=== PATIENT | male | born 1995 | race Caucasian/White ===

== ENCOUNTER 2016-09-29 12:23 | Emergency (ER) | payer OTHER ==
[2016-09-29 15:45] VITALS: BP 133/77
== END 2016-09-29 15:45 | disposition home or self-care (01) ==
LOC: ED 12:23
DX: S31.134A Puncture wound of abdominal wall without foreign body, left lower quadrant without penetration into peritoneal cavity, initial encounter (principal); F12.90 Cannabis use, unspecified, uncomplicated; Z88.0 Allergy status to penicillin; Z88.1 Allergy status to other antibiotic agents; W22.8XXA Striking against or struck by other objects, initial encounter; Y93.89 Activity, other specified; Y92.89 Other specified places as the place of occurrence of the external cause; Y99.0 Civilian activity done for income or pay
CPT/HCPCS: Q0092

== ENCOUNTER 2016-11-04 09:12 | Emergency (ER) | payer MEDICAID ==
[2016-11-04 10:53] VITALS: BP 128/71
== END 2016-11-04 10:53 | disposition home or self-care (01) ==
LOC: ED 09:12
DX: S61.211A Laceration without foreign body of left index finger without damage to nail, initial encounter (principal); Z88.0 Allergy status to penicillin; W26.8XXA Contact with other sharp object(s), not elsewhere classified, initial encounter; Y93.89 Activity, other specified; Y99.8 Other external cause status; Y92.89 Other specified places as the place of occurrence of the external cause
CPT/HCPCS: 90715

== ENCOUNTER 2017-06-19 05:43 | Emergency (ER) | payer MEDICAID ==
[~2017-06-19] VITALS: Ht 172.7 cm; Wt 104.3 kg
[2017-06-19 05:55] VITALS: Ht 172.7 cm; Wt 104.3 kg
[2017-06-19 06:58] VITALS: BP 130/89
== END 2017-06-19 06:58 | disposition home or self-care (01) ==
LOC: ED 05:43
DX: L50.9 Urticaria, unspecified (principal); F12.90 Cannabis use, unspecified, uncomplicated; Z88.0 Allergy status to penicillin; Z88.1 Allergy status to other antibiotic agents
CPT/HCPCS: J1200

== ENCOUNTER → 2017-06-19 | Outpatient (CLI) | payer MEDICAID ==
[2017-06-19 08:16] LABS: BASOPHIL % 0.1 % (0-2); PLATELET COUNT 197 x10^3mcL (130-400); RED CELL DISTRIBUTION WIDTH 13.6 % (11.5-14.5)
[2017-06-19 08:51] LABS: BILIRUBIN DIRECT 0.14 mg/dL (0.0-0.2); BILIRUBIN TOTAL 0.3 mg/dL (0.20-1.00); TOTAL PROTEIN, SERUM 7.1 g/dL (6.4-8.2)
[2017-06-19 08:54] LABS: CHOLESTEROL/HDL RATIO 3.3
== END | disposition home or self-care (01) ==
LOC: LB 07:20
PROVIDERS: Internal Medicine Gastroenterology
DX: K74.60 Unspecified cirrhosis of liver (principal); K76.9 Liver disease, unspecified; E66.9 Obesity, unspecified

== ENCOUNTER 2017-10-09 13:39 | Emergency (ER) | payer MEDICAID ==
[~2017-10-09] VITALS: Ht 175.3 cm; Wt 106.6 kg
[2017-10-09 14:36] VITALS: Ht 175.3 cm; Wt 106.6 kg
[2017-10-09 16:39] VITALS: BP 129/65
== END 2017-10-09 16:39 | disposition home or self-care (01) ==
LOC: ED 13:39
DX: S46.912A Strain of unspecified muscle, fascia and tendon at shoulder and upper arm level, left arm, initial encounter (principal); Z88.0 Allergy status to penicillin; Z88.8 Allergy status to other drugs, medicaments and biological substances; X58.XXXA Exposure to other specified factors, initial encounter; Y93.89 Activity, other specified; Y92.89 Other specified places as the place of occurrence of the external cause; Y99.8 Other external cause status

== ENCOUNTER → 2017-10-13 | Outpatient (CLI) | payer MEDICAID | END | disposition home or self-care (01) | LOC: US 12:24 | PROC: BW40ZZZ Ultrasonography of Abdomen (ICD-10-PCS; principal; 2017-10-13) | DX: K74.60 Unspecified cirrhosis of liver (principal); K76.9 Liver disease, unspecified; E66.9 Obesity, unspecified ==

== ENCOUNTER 2018-08-20 05:05 | Inpatient (IN) | payer MEDICAID ==
[~2018-08-20] VITALS: Ht 175.3 cm; Wt 91.6 kg
[2018-08-20 05:09] VITALS: Ht 175.3 cm; Wt 91.6 kg
--- NOTE | 2018-08-20 05:17 | NUR ---
PT CAME TO ED CO GENERALIZED ABD PAIN. PT POINTED TO ENTIRE STOMACH AND STS "IT JUST HURTS RIGHT HERE IN MY LIVER AREA." PT STS THAT THIS IS A CONSTANT PAIN BUT TODAY IT IS MORE SEVER. PT DISCRIBES THE PAIN STABBING, NON RADIATING HE RATES PAIN 10/10. PT IS LAYING ON SIDE ON GURNEY STS THIS IS RELIEVING THE PAIN . BOWEL SOUNDS ACTIVE IN ALL 4 QUADRANTS. NO S/S OF DISTRESS. RESP E/U. MOTHER AT BEDSIDE. AWAITING MSE. WILL CONTINUE TO MONITOR.
[2018-08-20 05:49] LABS: BASOPHIL % 0.4 % (0-2); PLATELET COUNT 231 x10^3mcL (130-400); RED CELL DISTRIBUTION WIDTH 13.3 % (11.5-14.5)
[2018-08-20 06:00] LABS: CALCIUM 9.3 mg/dL (8.5-10.1); CARBON DIOXIDE 28.4 mmol/L (21-32); CHLORIDE SERUM 106 mmol/L (98-107); CREATININE SERUM 1.2 mg/dL (0.7-1.3); GFR1 > 60 mL/min; GLUCOSE SERUM 95 mg/dL (74-106); POTASSIUM SERUM 3.5 mmol/L (3.5-5.1); SODIUM SERUM 143 mmol/L (136-145)
[2018-08-20 06:05] LABS: ALBUMIN 3.9 g/dL (3.4-5.0); ALKALINE PHOSPHATASE 56 U/L (46-116); ALT/SGPT 38 U/L (16-63); AST/SGOT 13 U/L (15-37); BILIRUBIN TOTAL 0.68 mg/dL (0.20-1.00); LIPASE 59 IU/L (73-393); TOTAL PROTEIN, SERUM 7.2 g/dL (6.4-8.2)
--- NOTE | 2018-08-20 07:02 | NUR ---
REPORT TO DEMETRA MEANS TO ASSUME CARE OF PT
--- NOTE | 2018-08-20 07:02 | NUR ---
RECEIVED REPORT JARRET MCCRARY, I WILL CONTINUE PT CARE AT THIS TIME.
--- NOTE | 2018-08-20 07:12 | NUR ---
PT MEDICATION PER ORDER PT VERBALIZED UNDERSTANDING OF MEDICATION. SEE EMAR FOR DETAILS.
--- NOTE | 2018-08-20 07:42 | NUR ---
PT OFF THE FLOOR TO CT
--- NOTE | 2018-08-20 11:21 | NUR ---
PT REPORT GIVEN TO BRENDA MCCRARY [facility] FLOOR, ALL QUESTIONS ADDRESSED AT THIS TIME.
--- NOTE | 2018-08-20 12:00 | NUR ---
RECEIVED PATIENT FROM ER, ABLE TO AMBULATE FROM [facility]. A/O X4, WITH GRANDMOTHER AT BEDSIDE. PATIENT REPORTED HE SAW BLOOD IN HIS EMESIS AND IN HIS DIRRHEA. NO COMPLAINT OF PAIN AT THIS TIME. IV IN RIGHT WRIST, SITE WNL FLUSHES WELL. CONNECTED TO TELE #5, SINUS HERRERA ON MONITOR. VSS. ORIENTED TO ROOM AND CALL LIGHT SYSTEM. CALL LIGHT WITHIN REACH
--- NOTE | 2018-08-20 13:44 | NUR ---
STARTED INFUSION OF NS AT 100ML/H. COLASE WAS NOT GIVEN IN ED AND NOT GIVEN NOW DUE TO REPORT OF DIRRHEA. NO COMPLAINTS AT THIS TIME. CALL LIGHT WITHIN REACH
--- NOTE | 2018-08-20 14:00 | NUR ---
DR RESENDIZ A BEDSIDE EXPLAINING TO PATIENT NEED FOR EGD. WITNESSED CONCENT FOR PROCEDURE, CHECKLIST COMPLETED. PATIENT STATED HE HAD NO MORE QUESTIONS. TRANSFERRED TO [facility] WITH SUGERGICAL STAFF, TAKEN OFF UNIT. TELE MONITOR NUMBER 5 REMAINING IN ROOM
--- NOTE | 2018-08-20 14:16 | NUR ---
PT OFF UNIT FOR EGD.
--- NOTE | 2018-08-20 15:00 | NUR ---
Discount pharmacy card and list to low cost medical clinics given to patient by Mandie Duffy.
--- NOTE | 2018-08-20 15:04 | NUR ---
PHONE REPORT FORM GI LAB ABOUT PATIENT. PROCEDURE DONE AND PATIENT TO BE TRANSFFERED BACK TO UNIT SHORTLY
--- NOTE | 2018-08-20 15:15 | NUR ---
PATIENT RETURNED TO ROOM VIA ZELDA WITH PER MCCRARY. PATIENT ALSEEP BUT ROUSABLE AND A/0X4, ON 2L O2 VIA NC WITH NS INFUSING. ASSSITED PATIENT AMBULAET TO BED AND PLACED INTO POSITION OF COMFORT. NS RESTARTED AT 100ML/HR, TELE MONITOR NUMBER 5 RECONECTED AND VERIFIED BY TELE MONITOR. PATIENT NOT COMPLAINING OF PAIN AT THIS TIME. FAMILY AT BEDSIDE. CALL LIGHT WITHIN REACH
[2018-08-20 15:59] VITALS: BP 112/79
[2018-08-20 17:30] VITALS: BP 108/73
--- NOTE | 2018-08-20 17:34 | NUR ---
PATIENT CONTINUES TO REST AT THIS TIME, APEARS TO BE SLEEPING. FAMILY AT BEDSIDE. ANSWERED FAMILY QUESTIONS ABOUT PLAN OF CARE.
--- NOTE | 2018-08-20 18:44 | NUR ---
PATIENT RESTING AWAKE IN BED. NO COMPLAINTS AT THIS TIME. ABLE TO AMBULATE TO RESTROOM. CALL LIGHT WITHIN REACH. FAMILY AT BEDSIDE
[2018-08-20 19:43] LABS: microscopic required? NO
--- NOTE | 2018-08-20 19:55 | NUR ---
RECEIVED PT FROM AM NURSE. PT AAOX4. TELE #5 SINUS HERRERA, DENIES CP/PRESSURE AT THIS TIME. PALPABLE PULSES TO BLE AND BUE. NO EDEMA NOTED. BREATHING EVEN AND UNLABORED, CTA ON RA. NO SIGNS OF DISTRESS NOTED. ABD SOFT AND NONDISTEDED, LAST BM 08/20 WITH BLACK ROSELIA LOOSE STOOL, DENIES ADB PAIN, NAUSEA, OR DIARRHEA AT THIS TIME. VOIDS FREELY WITH BRP. AMBULAROTY, SKIN INTACT. IV TO R WRIST INFUSING WELL. BED AT LOWEST POSITION, CALL LIGHT WITHING REACH, WILL CONTINUE TO MONITOR.
[2018-08-20 20:09] LABS: urine erythrocyte NEGATIVE (NEGATIVE)
[2018-08-20 20:17] LABS: AMPHETAMINE QUAL UR NONE DETECTED (See below)
[2018-08-20 20:37] VITALS: BP 102/59
--- NOTE | 2018-08-21 04:56 | NUR ---
PT SLEPT WELL THROGHOUT THE NIGHT, BREATHING EVEN AND UNLABORED, NO SIGNS OF ACUTE DISTRESS NOTED. ON TELE SINUS HERRERA, PT DENIES CP/PRESSURE. ALL NEEDS ASSESSED AND ATTENDED. WILL ENDORSE CARE TO AM NURSE.
[2018-08-21 05:39] VITALS: BP 108/71
[2018-08-21 06:22] LABS: BASOPHIL % 0.5 % (0-2); PLATELET COUNT 191 x10^3mcL (130-400); RED CELL DISTRIBUTION WIDTH 13.3 % (11.5-14.5)
[2018-08-21 06:39] LABS: CALCIUM 8.8 mg/dL (8.5-10.1); CARBON DIOXIDE 30.3 mmol/L (21-32); CHLORIDE SERUM 106 mmol/L (98-107); GFR1 > 60 mL/min; GLUCOSE SERUM 86 mg/dL (74-106); POTASSIUM SERUM 3.8 mmol/L (3.5-5.1); SODIUM SERUM 143 mmol/L (136-145)
--- NOTE | 2018-08-21 07:22 | NUR ---
A+OX4, NO RESPIRATORY DISTRESS NOTED, DENIES ABD PAIN, DENIES NAUSEA/VOMITING, PT STATES, "IM READY TO GO HOME," TELE 5, SINUS HERRERA, PULSES MODERATE AND EQUAL NEIL, NO EDEMA NOTED, LUNG SOUNDS CTA, TOLERATING RA, BOWEL SOUNDS ACTIVE, VOIDING FREELY, AMBULATORY WITHOUT ASSISTANCE, SKIN INTACT, IV IN R WRIST WITH NS INFUSING @ 100 ML/HR, SITE WNL.
[2018-08-21 08:40] VITALS: BP 113/79
--- NOTE | 2018-08-21 09:14 | NUR ---
PT RESTING IN BED, NO RESPIRATORY DISTRESS NOTED, DENIES ABD PAIN, DENIES N/V/D. PT STATES DR RESENDIZ CAME TO BEDSIDE AND TOLD HIM HE WAS CLEAR TO BE DC TODAY. CALL LIGHT WITHIN REACH.
[2018-08-21] MEDS ORDERED: GOOD SENSE OMEP20 MG PO (10:03)
[2018-08-21 10:14] VITALS: BP 113/79
--- NOTE | 2018-08-21 11:43 | NUR ---
PT GIVEN DC INSTRUCTIONS INCLUDING PRESCRIPTION, PT VERBALIZED UNDERSTANDING, IV REMOVED WITH CATHETER INTACT, GAUZE AND TAPE PLACED ON SITE, NO ERYTHEMA OR SWELLING TO SITE, TELE REMOVED AND RETURNED TO [employer] [facility]. PT OFF UNIT AMBULATING INDEPENDENTLY ESCORTED BY NATIONAL SALES DIRECTOR AND FRIEND WITH ALL BELONGINGS.
== END 2018-08-21 11:46 | disposition home or self-care (01) | DRG 241 ==
LOC: ED 05:05 → DU 07:20
PROVIDERS: Emergency Medicine; Internal Medicine Gastroenterology; ADMIT Family Medicine
PROC: 0DB68ZX Excision of Stomach, Via Natural or Artificial Opening Endoscopic, Diagnostic (ICD-10-PCS; principal; 2018-08-20 14:00)
DX: K29.60 Other gastritis without bleeding (principal); K92.0 Hematemesis; K70.30 Alcoholic cirrhosis of liver without ascites; K76.0 Fatty (change of) liver, not elsewhere classified; K29.80 Duodenitis without bleeding; K31.7 Polyp of stomach and duodenum; F10.188 Alcohol abuse with other alcohol-induced disorder; F12.10 Cannabis abuse, uncomplicated; E66.9 Obesity, unspecified
CPT/HCPCS: 43235; 83880; G0378; J1200; J1610; J2250; J2270; J2310; J2405; J3010; J3490; J7030; Q9967

== ENCOUNTER 2019-07-26 18:20 | Emergency (ER) | payer OTHER, MEDICAID, SELFPAY ==
[~2019-07-26] VITALS: Ht 172.7 cm; Wt 108.9 kg
[~2019-07-26 18:20] MED LIST: GOOD SENSE OMEP20 MG PO
[2019-07-26 19:20] VITALS: BP 131/89
== END 2019-07-26 19:20 | disposition home or self-care (01) ==
LOC: ED 18:20
DX: Z20.828 Contact with and (suspected) exposure to other viral communicable diseases (principal); Z88.0 Allergy status to penicillin; Z88.1 Allergy status to other antibiotic agents

== ENCOUNTER 2019-08-31 16:52 | Emergency (ER) | payer OTHER, MEDICAID ==
[~2019-08-31] VITALS: Ht 172.7 cm; Wt 63.0 kg
[2019-08-31 17:06] VITALS: Ht 172.7 cm; Wt 63.0 kg
[2019-08-31 17:28] VITALS: BP 135/90
== END 2019-08-31 17:28 | disposition home or self-care (01) ==
LOC: ED 16:52
DX: Z13.9 Encounter for screening, unspecified (principal); Z88.0 Allergy status to penicillin; Z88.1 Allergy status to other antibiotic agents

== ENCOUNTER 2020-05-20 09:05 | Emergency (ER) | payer MEDICAID, SELFPAY ==
[~2020-05-20] VITALS: Ht 172.7 cm; Wt 104.3 kg
[2020-05-20 09:12] VITALS: Ht 172.7 cm; Wt 104.3 kg
[2020-05-20 10:15] VITALS: BP 140/81
== END 2020-05-20 10:15 | disposition home or self-care (01) ==
LOC: ED 09:05
DX: R05 Cough (principal); R09.89 Other specified symptoms and signs involving the circulatory and respiratory systems; R11.2 Nausea with vomiting, unspecified; Z20.822 Contact with and (suspected) exposure to COVID-19; Z88.1 Allergy status to other antibiotic agents; Z88.0 Allergy status to penicillin
CPT/HCPCS: U0003